=== PATIENT | female | born 1955 | race Caucasian/White ===

== ENCOUNTER → 2017-03-22 | Emergency (ER) | payer OTHER ==
[~2017-03-22] VITALS: Ht 175.3 cm; Wt 78.0 kg
[~2017-03-22] MED LIST: CLONAZEPAM0.5 MG PO; MELOXICAM7.5 MG PO; MUCINEX600 MG PO; NEURONTIN300 MG PO; SUDAFED 12 HOU120 MG PO; ZOLOFT50 MG PO; ZYRTEC10 MG PO
== END | disposition home or self-care (01) ==
LOC: ED 15:19
DX: R51 Headache (principal); M54.2 Cervicalgia; Z96.643 Presence of artificial hip joint, bilateral; Z88.1 Allergy status to other antibiotic agents; Z88.5 Allergy status to narcotic agent; Z88.0 Allergy status to penicillin; Z79.899 Other long term (current) drug therapy; V49.40XA Driver injured in collision with unspecified motor vehicles in traffic accident, initial encounter
CPT/HCPCS: 72040; 99283